=== PATIENT | female | born 1975 | race Caucasian/White ===

== ENCOUNTER 2019-06-24 16:37 | Emergency (ER) | payer SELFPAY ==
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
[2019-06-24] MEDS ORDERED: DIPHTH,PERTUSS(ACELL),TET 0.5 ML DISP.SYRIN IM ONE ×2 (16:44→17:50)
[2019-06-24 16:46] VITALS: BP 120/74; PULSE 91; TEMP 98.2; BMI 50.5
[2019-06-24] MEDS ORDERED: IBUPROFEN 600 MG TABLET (FP) PO ONE ×2 (17:30→17:50)
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
== END 2019-06-24 18:09 | disposition home or self-care (01) ==
LOC: JERFT 16:37
DX: S61.412A Laceration without foreign body of left hand, initial encounter (principal); Y04.2XXA Assault by strike against or bumped into by another person, initial encounter; Y93.89 Activity, other specified; Y92.038 Other place in apartment as the place of occurrence of the external cause; Y99.8 Other external cause status; Y07.03 Male partner, perpetrator of maltreatment and neglect
CPT/HCPCS: 90715; 99281-25